=== PATIENT | female | born 1940 | race Two or more races ===

== ENCOUNTER 2021-05-28 17:46 | Emergency (ER) | payer OTHER ==
[~2021-05-28] VITALS: Ht 170.2 cm; Wt 72.6 kg
[2021-05-28] MEDS ORDERED: DONEPEZIL 5 MG (18:05)
[2021-05-28] MEDS ORDERED: QUETIAPINE 50 MG (18:05)
[2021-05-28] MEDS ORDERED: FENOFIBRATE 48 MG (18:07)
[2021-05-28] MEDS ORDERED: METFORMIN 250 MG (18:08)
[2021-05-28] MEDS ORDERED: TOPROL XL50 M1 (18:09)
[2021-05-28] MEDS ORDERED: VITAMINA D-3 (18:10)
== END 2021-05-28 22:15 | disposition home or self-care (01) ==
LOC: ER 17:46
DX: K92.2 Gastrointestinal hemorrhage, unspecified (principal); K21.9 Gastro-esophageal reflux disease without esophagitis; G30.8 Other Alzheimer's disease; F02.80 Dementia in other diseases classified elsewhere, unspecified severity, without behavioral disturbance, psychotic disturbance, mood disturbance, and anxiety; Z03.818 Encounter for observation for suspected exposure to other biological agents ruled out; Z74.01 Bed confinement status

== ENCOUNTER 2021-09-10 11:41 | Emergency (ER) | payer OTHER ==
[~2021-09-10] VITALS: Ht 170.2 cm; Wt 72.6 kg
[~2021-09-10 11:41] MED LIST: DONEPEZIL 5 MG; FENOFIBRATE 48 MG; METFORMIN 250 MG; QUETIAPINE 50 MG; TOPROL XL50 M1; VITAMINA D-3
[2021-09-10] MEDS ORDERED: FENOFIBRATE48 MG PO (12:34)
[2021-09-10] MEDS ORDERED: GLUMETZA500 MG PO (12:35)
[2021-09-10] MEDS ORDERED: QUETIAPINE FUM400 M1 PO (12:35)
[2021-09-10] MEDS ORDERED: DONEPEZIL HCL OD5 MG PO (12:35)
[2021-09-10] MEDS ORDERED: TOPROL XL50 M1 PO (12:36)
== END 2021-09-11 02:32 | disposition home or self-care (01) ==
LOC: ER 11:41
DX: K21.9 Gastro-esophageal reflux disease without esophagitis (principal); K92.0 Hematemesis; E11.9 Type 2 diabetes mellitus without complications; I10 Essential (primary) hypertension; Z20.822 Contact with and (suspected) exposure to COVID-19